=== PATIENT | female | born 1985 | race Caucasian/White ===

== ENCOUNTER 2017-06-17 02:56 | Emergency (ER) | payer OTHER ==
[~2017-06-17] VITALS: Ht 162.6 cm; Wt 86.8 kg
[2017-06-17 03:00] VITALS: BP 130/77; TEMP 98
[2017-06-17] MEDS ORDERED: PRENATAL (03:15)
[2017-06-17] MEDS ORDERED: VITAMIN B-6100 MG (03:16)
[2017-06-17 04:09] LABS: BASO % 0.4 % (0.0-2.0); EOS % 0.3 % (0-4.0); GRAN % 88.4 % (42.2-75.2); HEMATOCRIT 37.6 % (37.0-47.0); HEMOGLOBIN 12.9 g/dl (12.5-16.0); LYMPH # 0.5 (1.2-3.4); LYMPH % 4.2 % (20.0-51.0); MEAN CELL VOLUME 96 fl (80.0-100.0); MEAN CORPUSCULAR HEMOGLOBIN 33 pg (27.0-31.0); MEAN CORPUSCULAR HGB CONC 34 g/dl (33.0-37.0); MEAN PLATELET VOLUME 8.6 fl (7.4-10.4); MONO # 0.6 (0.1-0.6); MONO % 5.6 % (1.7-9.3); PLATELET COUNT 179 K/mm3 (130-400); REDCELL DISTRIBUTION WIDTH-CV 13.6 % (11.5-14.5)
[2017-06-17 04:20] LABS: ALBUMIN 3.3 gm/dL (3.5-5.0); BILIRUBIN,TOTAL 0.4 mg/dL (0.0-1.0); CALCIUM 8.6 mg/dL (8.4-10.2); CREATININE, serum 0.68 mg/dL (0.52-1.25); POTASSIUM 4.1 mmol/L (3.4-5.0); TOTAL PROTEIN 6.3 gm/dL (6.4-8.2)
[2017-06-17 04:21] LABS: COLLECTION METHOD CLEAN CATCH
[2017-06-17 04:31] LABS: MUCOUS Present /lpf; PH 5 (5-8); URINE APPEARANCE Cloudy; URINE BACTERIA Rare /hpf; URINE BILIRUBIN Negative (NEGATIVE); URINE BLOOD Negative (NEGATIVE); URINE COLOR Amber; URINE GLUCOSE Negative (NEGATIVE); URINE KETONE 1+ (NEGATIVE); URINE LEUKOCYTE ESTERASE 2+ (NEGATIVE); URINE NITRATE Negative (NEGATIVE); URINE PROTEIN(semi-quant) 1+ (NEGATIVE); URINE UROBILINOGEN Negative (NEGATIVE)
[2017-06-17] MEDS ORDERED: MACROBID 1100 MG/CAP PO (04:53)
[2017-06-17] MEDS ORDERED: PHENERGAN25 MG RC (04:53)
[2017-06-17 05:09] VITALS: PULSE 85
== END 2017-06-17 05:08 | disposition home or self-care (01) ==
LOC: COL.ER 02:56
PROVIDERS: Emergency Medicine
DX: O99.613 Diseases of the digestive system complicating pregnancy, third trimester (principal); R19.7 Diarrhea, unspecified; O21.9 Vomiting of pregnancy, unspecified; O23.43 Unspecified infection of urinary tract in pregnancy, third trimester; Z3A.39 39 weeks gestation of pregnancy
CPT/HCPCS: J2405; J7030

== ENCOUNTER 2017-06-21 07:34 | Inpatient (IN) | payer OTHER ==
[2017-06-21] VITALS (29 sets, daily range): BP systolic 95–130; BP diastolic 53–92; PULSE 55–88; TEMP 97.7–98.6
[~2017-06-21] VITALS: Ht 160 cm; Wt 86.4 kg
[~2017-06-21 07:34] MED LIST: MACROBID 1100 MG/CAP PO; PHENERGAN25 MG RC; PRENATAL; VITAMIN B-6100 MG
[2017-06-21] MEDS ORDERED: COLACE 100100 MG/CAP PO (08:56)
[2017-06-21 09:47] LABS: BASO % 0.2 % (0.0-2.0); EOS % 0.3 % (0-4.0); GRAN # 9.4 (1.4-6.5); GRAN % 78.4 % (42.2-75.2); HEMOGLOBIN 12.1 g/dl (12.5-16.0); LYMPH # 1.6 (1.2-3.4); LYMPH % 13.2 % (20.0-51.0); MEAN CELL VOLUME 95 fl (80.0-100.0); MEAN CORPUSCULAR HEMOGLOBIN 33 pg (27.0-31.0); MEAN CORPUSCULAR HGB CONC 34 g/dl (33.0-37.0); MEAN PLATELET VOLUME 9.6 fl (7.4-10.4); MONO # 0.8 (0.1-0.6); PLATELET COUNT 219 K/mm3 (130-400); RED BLOOD COUNT 3.72 M/mm3 (4.10-5.30); REDCELL DISTRIBUTION WIDTH-CV 13.8 % (11.5-14.5)
[2017-06-21 09:53] LABS: HEMATOCRIT 35.4 % (37.0-47.0)
[2017-06-22 03:45] VITALS: BP 122/73; PULSE 90
[2017-06-22 09:17] VITALS: BP 105/77; PULSE 72
[2017-06-22 17:18] VITALS: BP 107/72; PULSE 77
[2017-06-22 22:20] VITALS: BP 115/67; PULSE 79; TEMP 98.1
[2017-06-23] MEDS ORDERED: PERCOCET 325 MG1 TA2 PO (07:37)
[2017-06-23] MEDS ORDERED: MOTRIN 800800 MG/TAB PO (07:37)
[2017-06-23 08:58] VITALS: BP 111/69; PULSE 85; TEMP 97.5
== END 2017-06-23 11:45 | disposition home or self-care (01) | DRG 775 ==
LOC: LDRO 07:34 → LDR 08:32 → OB 14:30
PROVIDERS: Obstetrics & Gynecology
PROC: 10E0XZZ Delivery of Products of Conception, External Approach (ICD-10-PCS; principal; 2017-06-21)
PROC: 0KQM0ZZ Repair Perineum Muscle, Open Approach (ICD-10-PCS; 2017-06-21)
DX: O70.1 Second degree perineal laceration during delivery (principal); Z37.0 Single live birth; Z3A.39 39 weeks gestation of pregnancy
CPT/HCPCS: J2590; J2795; J7120

== ENCOUNTER → 2017-06-24 | Outpatient (CLI) | payer OTHER ==
[~2017-06-24] MED LIST changes: +COLACE 100100 MG/CAP PO; +MOTRIN 800800 MG/TAB PO; +PERCOCET 325 MG1 TA2 PO
== END ==
LOC: LAC 10:25
DX: Z39.1 Encounter for care and examination of lactating mother (principal); Z71.89 Other specified counseling

== ENCOUNTER 2018-12-12 09:58 | Inpatient (IN) | payer OTHER ==
[~2018-12-12] VITALS: Ht 160 cm; Wt 92.3 kg
[2018-12-12] VITALS (22 sets, daily range): BP systolic 90–132; BP diastolic 55–89; PULSE 52–91; TEMP 97.5–98.8
--- NOTE | 2018-12-12 10:00 | NUR ---
PAtient presents to unit with complaints of leaking of fluids, denies complications, reports good movement, denies bleeding. Reported membranes stripped 2 days ago. SVE completed with swab and noted immediate blue change of color, noted 4-5/80/-2. Noted of secondary bag around fetus with exam. Patient tolerated well, completed exam. Patient admitted. informed of patient arrival. Orders received for Mae and Pitocin. Will continue to monitor
--- NOTE | 2018-12-12 10:45 | NUR ---
Pitocin startedd per protocol. Pen G given as ordered. Will continue to tr
[2018-12-12 11:05] LABS: BASO % 0.5 % (0.0-2.0); EOS # 0.1 (0.0-0.7); GRAN # 5.4 (1.4-6.5); GRAN % 65.8 % (42.2-75.2); HEMOGLOBIN 11.7 g/dl (12.5-16.0); LYMPH # 2.1 (1.2-3.4); LYMPH % 25.5 % (20.0-51.0); MEAN CELL VOLUME 94 fl (80.0-100.0); MEAN CORPUSCULAR HEMOGLOBIN 32 pg (27.0-31.0); MEAN CORPUSCULAR HGB CONC 34 g/dl (33.0-37.0); MEAN PLATELET VOLUME 9.7 fl (7.4-10.4); MONO # 0.5 (0.1-0.6); MONO % 6.6 % (1.7-9.3); PLATELET COUNT 176 K/mm3 (130-400); RED BLOOD COUNT 3.69 M/mm3 (4.10-5.30); REDCELL DISTRIBUTION WIDTH-CV 14.7 % (11.5-14.5)
[2018-12-12 11:20] LABS: HEMATOCRIT 34.6 % (37.0-47.0)
--- NOTE | 2018-12-12 12:00 | NUR ---
Patient reporting rectal pressure, patient to bed from birthing ball. SVE completed and noted as documented. During exam, SROM noted with copious amounts of clear fluid. Pericare provided. called with update on patient status.
--- NOTE | 2018-12-12 12:15 | NUR ---
Patient requests epidural at this time. Jude Pearce CEMENT MIXER DRIVER notified of patient request.
--- NOTE | 2018-12-12 12:30 | NUR ---
1222- uJde Pearce IMPREGNATOR [employer]ITORS at patient bedside, patient up to edge of bed and in placed for epidural. Patient vocalized understanding. 1228- Test dose given and tolerated 1232- Patient laid down in wedge left postion. Patient comfortable. Monitors readjusted. Will continue to monitor.
--- NOTE | 2018-12-12 12:45 | NUR ---
SVE completed and patient tolerated well. Patient noted of exam as charted. Dr. Collins called and given update on patient status, reports she will head to hospital soon. Will continue to monitor.
--- NOTE | 2018-12-12 13:00 | NUR ---
FHR noted with variables down to 90bpm with spontaneous return to baseline. SVE completed and noted with further change with anterior lip. notified and informs she is on the way. Patient prepped for delivery.
--- NOTE | 2018-12-12 13:23 | NUR ---
1300- Intermittent variable noted with FHR down to 90bpm with spontaneous return to basline. Nurse at patient bedside for monitoring. Patient prepped for delivery. 1312- at patient bedside reviews FHR strip, SVE completed noted complete and encourages patient to begin to push with contractions. FHR down to 60BPM. completes scalp stimulation, oxygen in place, fluid bolus initiated. Patient continues to push with contractions. discusses with patient use of vaccum. Vaccum in place, patient continues to pus. 1323- Delivery of viable male , infant placed on mothers abdomen for drying and stimulation. Infant to care of nursery [address], dried and stimulated. 1329- Delivery of placenta. Pitocin satrted per protocol. completes repair, fundal massage performed as indicated
[2018-12-13 05:30] VITALS: BP 113/65; PULSE 79
[2018-12-13 08:30] VITALS: BP 113/66; PULSE 66; TEMP 98.5
[2018-12-13 12:35] VITALS: BP 117/74; PULSE 67; TEMP 98.4
[2018-12-13 16:08] VITALS: BP 125/68; PULSE 73; TEMP 98.2
[2018-12-13 20:05] VITALS: BP 109/72; PULSE 76; TEMP 98.1
[2018-12-14 08:39] VITALS: BP 120/76; PULSE 79; TEMP 98.3
[2018-12-14] MEDS ORDERED: MOTRIN 800800 MG/TAB PO (08:48)
--- NOTE | 2018-12-14 11:49 | NUR ---
PT REQUESTED FLU SHOT. VACCINE GIVEN IN R DELTOID. PT TOLERATED WELL. DISCHARGE INFO GIVEN. CARSEAT STRAPS CHECKED. FATHER, MOTHER, AND INFANT ESCORTED OFF UNIT BY STAFF MEMBER.
== END 2018-12-14 11:45 | disposition home or self-care (01) | DRG 807 ==
LOC: LDRO 09:58 → LDR 10:23 → OB 17:21
PROVIDERS: ADMIT Student in an Organized Health Care Education/Training Program
PROC: 10D07Z6 Extraction of Products of Conception, Vacuum, Via Natural or Artificial Opening (ICD-10-PCS; principal; 2018-12-12)
PROC: 0KQM0ZZ Repair Perineum Muscle, Open Approach (ICD-10-PCS; 2018-12-12)
DX: O99.214 Obesity complicating childbirth (principal); Z37.0 Single live birth; O99.824 Streptococcus B carrier state complicating childbirth; O76 Abnormality in fetal heart rate and rhythm complicating labor and delivery; O70.1 Second degree perineal laceration during delivery; O69.89X0 Labor and delivery complicated by other cord complications, not applicable or unspecified; Z3A.40 40 weeks gestation of pregnancy
CPT/HCPCS: J2540; J2590; J2795; J7120

== ENCOUNTER 2021-05-04 05:16 | Inpatient (IN) | payer OTHER ==
[~2021-05-04] VITALS: Ht 160 cm; Wt 90.5 kg
[2021-05-04] VITALS (29 sets, daily range): BP systolic 97–135; BP diastolic 53–94; PULSE 86–121; TEMP 97.5–99.2
--- NOTE | 2021-05-04 05:20 | NUR ---
0520- PATIENT AND SPOUSE AMBULATORY TO UNIT. ORIENTATED TO ROOM AND CHANGED INTO CLEAN GOWN. PATIENT REPORTS GFM, NO LOF OR BLEEDING AND CONTRACTIONS THAT STARTED TO BE MORE CONSISTENT AROUND 3-5 MINUTES AT AROUND 0300 THIS MORNING. 0530- EFM AND TOCO ON AND TRACING. VITALS TAKEN, ASSESSMENT COMPLETED. PLAN OF CARE DISCUSSED. 0535- SVE /-2. 0543- PROVIDER NOTIFIED, SEE PHYSICIAN NOTIFICATION.
[2021-05-04 07:21] LABS: BASO # 0.1 K/mm3 (0.0-0.2); BASO % 0.3 % (0.0-2.0); EOS % 0.1 % (0.0-4.0); GRAN # 12.5 K/mm3 (1.4-6.5); GRAN % 85.4 % (42.2-75.2); HEMOGLOBIN 11.4 g/dl (12.5-16.0); LYMPH # 0.7 K/mm3 (1.2-3.4); LYMPH % 5.1 % (20.0-51.0); MEAN CELL VOLUME 94 fl (80.0-100.0); MEAN CORPUSCULAR HEMOGLOBIN 32 pg (27-31); MEAN CORPUSCULAR HGB CONC 34 g/dl (33.0-37.0); MEAN PLATELET VOLUME 9.7 fl (7.4-10.4); MONO # 1.2 K/mm3 (0.1-0.6); MONO % 7.9 % (1.7-9.3); PLATELET COUNT 169 K/mm3 (130-400); REDCELL DISTRIBUTION WIDTH-CV 14.5 % (11.5-14.5)
[2021-05-04 07:23] LABS: HEMATOCRIT 33.9 % (37.0-47.0)
[2021-05-04] MEDS ORDERED: MOTRIN 800800 MG/TAB PO (09:12)
--- NOTE | 2021-05-04 11:08 | NUR ---
1042 This RN at bedside with deceleration in FHR. 1044 SVE by this RN /+1. This RN remains at bedside. FHR recovering. 1050 Dr. Mccabe called and notified. 1058 Dr. Mccabe arrives on unit. setting up for delivery. 1100 Pt begins pushing with contractions. 1105 Spontaneous vaginal delivery of viable male infant. bulb suctioned and stimulated. Nuchal cord x1. Cord clamped by and cut by FOB. Infant to mother's chest. Pb Charles takes over care of infant. 1108 Spontaneous delivery of placenta. Pitocin bolus started per protocol. 1st degree perineal laceratin noted. Repaired by Dr. Mccabe. Fundal massage done. Firm/midline. Scant amount of bleeding noted. Kamila care done. Plan of care discussed. Pt verbalizes understanding.
--- NOTE | 2021-05-04 13:10 | NUR ---
1310- Fundus firm, at the U, and midline, 2 small clots noted with minimal free-flow. Moderate amount of urine noted with fundal check. Pt unable to raise left leg off of bed. Bedpan under Pt, voided 150mls easily. Pericare completed, new chux under bottom. Pt tolerated well.
[2021-05-05 02:45] VITALS: BP 99/64; PULSE 74; TEMP 97.6
[2021-05-05 08:50] VITALS: BP 108/65; PULSE 76
[2021-05-05 12:15] VITALS: BP 107/70; PULSE 76; TEMP 97.4
[2021-05-05 16:55] VITALS: BP 104/64; PULSE 82; TEMP 97.3
[2021-05-05 20:15] VITALS: BP 98/62; PULSE 78; TEMP 97.7
[2021-05-06 07:15] VITALS: BP 118/72; PULSE 69; TEMP 97.4
--- NOTE | 2021-05-06 10:31 | NUR ---
DISCHARGE TEACHING COMPLETED. EDUCATED ON FOLLOW UP APPOINTMENT AND PRESCRIPTIONS. QUESTIONS INVITED AND ANSWERED.
== END 2021-05-06 10:50 | disposition home or self-care (01) | DRG 807 ==
LOC: LDRO 05:16 → LDR 05:45 → OB 14:25
PROVIDERS: ADMIT Obstetrics & Gynecology
PROC: 10E0XZZ Delivery of Products of Conception, External Approach (ICD-10-PCS; principal; 2021-05-04)
PROC: 0HQ9XZZ Repair Perineum Skin, External Approach (ICD-10-PCS; 2021-05-04)
DX: O99.824 Streptococcus B carrier state complicating childbirth (principal); Z37.0 Single live birth; O99.214 Obesity complicating childbirth; O99.62 Diseases of the digestive system complicating childbirth; K21.9 Gastro-esophageal reflux disease without esophagitis; O70.0 First degree perineal laceration during delivery; O69.81X0 Labor and delivery complicated by cord around neck, without compression, not applicable or unspecified; Z3A.38 38 weeks gestation of pregnancy
CPT/HCPCS: J2540; J2590; J7120

== ENCOUNTER 2023-02-24 06:11 | Inpatient (IN) | payer OTHER ==
[~2023-02-24] VITALS: Ht 162.6 cm; Wt 87.3 kg
[2023-02-24] VITALS (22 sets, daily range): BP systolic 97–123; BP diastolic 50–79; PULSE 52–95; TEMP 97.6–98.8
--- NOTE | 2023-02-24 06:25 | NUR ---
PT AMBULATORY TO UNIT FOR SCHEDULE IOL. PT REPORTS IRREGULAR INTERMITTENT CONTRACTIONS, BUT DENIES PAIN WITH CONTRACTIONS. DENIES LOF/VB, AND REPORTS POSITIVE MOVEMENT. ORIENTED TO PLAN OF CARE. EFM TRACING CATEGORY 1 UPON ARRIVAL. PT REPORTS NO 28 WEEK GLUCOSE TESTING DUE TO DRINK MAKING HER SICK. INSTEAD TRACKED BLOOD SUGARS AT HOME X1 WEEK, ALL WERE STABLE. DID NOT RECEIVE TDAP VACCINE. WILL ADMINISTER VACCINE PRIOR TO DC. CONSENT SIGNED.
[2023-02-24 07:00] LABS: BASO % 0.4 % (0.0-2.0); EOS # 0.1 K/mm3 (0.0-0.7); EOS % 0.8 % (0.0-4.0); GRAN # 5.3 K/mm3 (1.4-6.5); GRAN % 66.2 % (42.2-75.2); HEMOGLOBIN 11.5 g/dl (12.5-16.0); LYMPH # 1.8 K/mm3 (1.2-3.4); LYMPH % 23.1 % (20.0-51.0); MEAN CELL VOLUME 98 fl (80.0-100.0); MEAN CORPUSCULAR HEMOGLOBIN 33 pg (27-31); MEAN CORPUSCULAR HGB CONC 33 g/dl (33.0-37.0); MEAN PLATELET VOLUME 9.4 fl (7.4-10.4); MONO # 0.7 K/mm3 (0.1-0.6); MONO % 8.4 % (1.7-9.3); PLATELET COUNT 168 K/mm3 (130-400); RED BLOOD COUNT 3.52 M/mm3 (4.10-5.30); REDCELL DISTRIBUTION WIDTH-CV 13.9 % (11.5-14.5)
[2023-02-24 07:01] LABS: HEMATOCRIT 34.6 % (37.0-47.0)
--- NOTE | 2023-02-24 07:59 | NUR ---
AT BEDSIDE. SVE /-2. AROM WITH CLEAR FLUID @ 0759 PER . PT TOLERATED PROCEDURE WELL. PER , PITOCIN TO REMAIN AT 4MU TO ACHIEVE MAXIMUM ABX COVERAGE FOR GBS+ PATIENT. CATEGORY 1 EFM TRACING AT THIS TIME.
[2023-02-24] MEDS ORDERED: MOTRIN 800800 MG/TAB PO (17:38)
[2023-02-25 04:00] VITALS: BP 104/72; PULSE 82; TEMP 98.1
[2023-02-25 07:38] VITALS: BP 109/74; PULSE 62; TEMP 97.9
--- NOTE | 2023-02-25 09:06 | NUR ---
Initial visit; Patient thanked Pocket Cutter for looking in on her and her new daughter. Pocket Cutter offered congratulations and God's blessings and thanked "Mom" for choosing [facility]. Patient stated that she has had a wonderful experience here with us at our Hospital. Pocket Cutter commented that we certainly are blessed with nurses and staff who love what they do and thanked "Mom"
[2023-02-25 17:30] VITALS: BP 124/68; PULSE 74; TEMP 98
[2023-02-25 21:00] VITALS: BP 115/72; PULSE 63; TEMP 97.9
[2023-02-26 08:05] VITALS: BP 120/76; PULSE 62; TEMP 98.1
== END 2023-02-26 13:29 | disposition home or self-care (01) | DRG 807 ==
LOC: LDR 06:11 → OB 12:38
PROVIDERS: ADMIT Obstetrics & Gynecology
PROC: 10E0XZZ Delivery of Products of Conception, External Approach (ICD-10-PCS; principal; 2023-02-24)
PROC: 10907ZC Drainage of Amniotic Fluid, Therapeutic from Products of Conception, Via Natural or Artificial Opening (ICD-10-PCS; 2023-02-24)
PROC: 3E033VJ Introduction of Other Hormone into Peripheral Vein, Percutaneous Approach (ICD-10-PCS; 2023-02-24)
PROC: 0HQ9XZZ Repair Perineum Skin, External Approach (ICD-10-PCS; 2023-02-24)
DX: O99.824 Streptococcus B carrier state complicating childbirth (principal); Z37.0 Single live birth; Z3A.39 39 weeks gestation of pregnancy; O99.214 Obesity complicating childbirth; O76 Abnormality in fetal heart rate and rhythm complicating labor and delivery; O70.0 First degree perineal laceration during delivery; O69.89X0 Labor and delivery complicated by other cord complications, not applicable or unspecified; Z23 Encounter for immunization
CPT/HCPCS: J2540; J2590; J2795; J7120